=== PATIENT | male | born 1980 | race African-American/Black ===

== ENCOUNTER 2022-12-14 18:27 | Emergency (ER) | payer MEDICAID ==
--- NOTE | 2022-12-14 19:16 | ED Physician Documentation ---
History of Present Illness - Stated complaint Stated Complaint: DRAIN BAG - Chief complaint Chief Complaint: General - History obtained from History obtained from: Patient, Family - Additonal information Additional information: 42-year-old gentleman with history of polysubstance use, methamphetamine, tobacco and cannabis and schizophrenia who had a prolonged hospital course this year. 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 Hospital course complicated by duodenal perforation status post ex lap with duodenal repair and omental patch developing later Multrys multiple intra-abdominal abscesses with IR placed drains. He was on multiple antibiotic courses. Went back to [facility] on September 24 for right subphrenic fluid collection with drain placement. Back to rehab on October 02. Had a left drain placement by IR 511 and then developed signs of sepsis. That fluid did not grow anything. Recently moved back to the area and here wanting follow-up and also wondering if the drain can be replaced. He has some cognitive difficulties so most of the history is from the mother. Currently has no complaints. Denies fevers, pain, shortness of breath. PD PAST MEDICAL HISTORY - Present Medications Home Medications: Ambulatory Orders Medication Instructions Recorded Confirmed Fluconazole [Diflucan] 200 mg PO DAILY #56 tablet 12/14/22 levoFLOXacin [Levofloxacin] 750 mg PO DAILY #28 tablet 12/14/22 metroNIDAZOLE [Flagyl] 500 mg PO TID 7 Days #84 tablet 12/14/22 - Allergies Allergies/Adverse Reactions: Allergies Allergy/AdvReac Type Severity Reaction Status Date / Time No Known Drug Allergies Allergy Verified 12/14/22 18:37 PD ED PE NORMAL - Vitals Vital signs reviewed: Yes - General General: No acute distress, Other (Blunted affect) - Neck Neck: Supple, no meningeal sign, No bony TTP - Cardiac Cardiac: RRR, No murmur - Respiratory Respiratory: No respiratory distress, Clear bilaterally - Abdomen Abdomen: Normal bowel sounds, Non tender - Back Back: Other (There is a drain in the left flank with thick greenish material in the tubing bag but of small amount.) - Derm Derm: Normal color, Warm and dry - Extremities Extremities: No edema, No calf tenderness / cord - Neuro Neuro: Alert and oriented X 3, Normal speech Results - Vitals Vitals: Vital Signs - 24 hr 12/14/22 18:36 Temperature 36.9 C Heart Rate 99 Respiratory 20 Rate Blood Pressure 130/88 H O2 Saturation 100 Oxygen O2 Source Room air - Labs Labs: Laboratory Tests 12/14/22 12/14/22 20:07 20:07 WBC 6.4 RBC 4.42 L Hgb 11.5 L Hct 36.4 L MCV 82.4 MCH 26.0 L MCHC 31.6 L RDW 15.9 H Plt Count 395 MPV 8.7 Neut # (Auto) 4.0 Lymph # (Auto) 1.8 [place] # (Auto) 0.5 Eos # (Auto) 0.1 Baso # (Auto) 0.0 Absolute Nucleated RBC 0.00 Nucleated RBC % 0.0 Sodium 135 Potassium 3.7 Chloride 103 Carbon Dioxide 26 Anion Gap 6.0 BUN 10 Creatinine 0.7 Estimated GFR (MDRD) 151 Glucose 99 Calcium 9.3 Total Bilirubin 0.4 AST 20 ALT 13 Alkaline Phosphatase 80 Total Protein 8.2 Albumin 3.1 L Globulin 5.1 H Albumin/Globulin Ratio 0.6 L PD Medical Decision Making - ED course ED course: 42-year-old gentleman has had a very complicated medical history this year who has a drain in place and still has some drainage and wondering if he can get it out. Much of the history is from his mother due to his schizophrenia. I spent quite some time on records review that the mom has with him. We did a CT of the chest abdomen pelvis which shows persistent fluid collection so the drain cannot be removed at this time and also pulmonary nodules that were discussed with the patient and mom. Given the persistent fluid collection we will restart antibiotics. Previously per the notes he was on Levaquin, Flagyl, and fluconazole. He appears well with relatively normal blood work save anemia. His QTc had been followed previously on this regimen without issue and he tolerated them well. Departure - Departure Disposition: 01 Home, Self Care Clinical Impression: Intra-abdominal abscess Condition: Good Record reviewed to determine appropriate education?: Yes Follow-Up: Suman Arroyo MD [Provider Admit Priv/Credential] - Prescriptions: Fluconazole [Diflucan] 200 mg PO DAILY #56 tablet metroNIDAZOLE [Flagyl] 500 mg PO TID 7 Days #84 tablet levoFLOXacin [Levofloxacin] 750 mg PO DAILY #28 tablet Comments: As discussed, imaging today demonstrates that the fluid collection is still there measuring today 5.2 x 2.4 x 2.7 cm. Given this we will need to leave the drain and I am restarting the antibiotics you are on previously. You should follow-up with our physician on-call for outpatient follow-up. His number is on this form, call first thing tomorrow for an appointment. Important to follow- up closely as your case is very complicated. You do have some small pulmonary nodules and would benefit from repeat CT imaging of the chest in 12 months to document stability.
[2022-12-14] MEDS ORDERED: iohexoL-300 100 ML VIAL ONE (19:19)
[2022-12-14 20:13] LABS: BASOPHILS % (AUTO) 0.6 %; EOSINOPHILS # (AUTO) 0.1 10^3/uL (0.0-0.7); EOSINOPHILS % (AUTO) 1.6 %; HCT - HEMATOCRIT 36.4 % (42.0-52.0); HGB - HEMOGLOBIN 11.5 g/dL (14.0-18.0); LYMPHOCYTES # (AUTO) 1.8 10^3/uL (1.5-3.5); LYMPHOCYTES % (AUTO) 27.6 %; MEAN CORPUSCULAR HGB CONC 31.6 g/dL (32.0-36.0); MEAN CORPUSCULAR VOLUME 82.4 fL (80.0-94.0); MEAN PLATELET VOLUME 8.7 fL (7.4-11.4); MONOCYTES # (AUTO) 0.5 10^3/uL (0.0-1.0); MONOCYTES % (AUTO) 8.3 %; NEUTROPHILS % (AUTO) 61.6 %; PLT - PLATELET COUNT 395 10^3/uL (130-450); RED BLOOD COUNT 4.42 10^6/uL (4.70-6.10); RED CELL DISTRIBUTION WIDTH 15.9 % (12.0-15.0); WHITE BLOOD COUNT 6.4 x10^3/uL (4.8-10.8)
[2022-12-14 20:25] LABS: ALBUMIN 3.1 g/dL (3.2-5.5); ALBUMIN/GLOBULIN RATIO 0.6 (1.0-2.2); BILIRUBIN,TOTAL 0.4 mg/dL (0.2-1.0); CALCIUM 9.3 mg/dL (8.5-10.3); CREATININE 0.7 mg/dL (0.6-1.2); POTASSIUM 3.7 mmol/L (3.5-5.0); TOTAL PROTEIN 8.2 g/dL (6.7-8.2)
--- NOTE | 2022-12-14 22:26 | CT Report ---
PROCEDURE: CHEST W INDICATIONS: History pneumonia and mult intra-abdominal abscess CONTRAST: Omni 300 100ml TECHNIQUE: After the administration of intravenous contrast, 1 mm axial images were acquired from the pulmonary apices through the posterior costophrenic angles. Axial 5 mm soft tissue kernel reconstructions were performed as well as 8 mm axial MIP and coronal and sagittal 5 mm reformations. For radiation dose reduction, the following was used: automated exposure control, adjustment of mA and/or kV according to patient size. COMPARISON: Concurrent CT abdomen pelvis. FINDINGS: Image quality: Excellent. Lower Neck: No lymphadenopathy by size criteria. Thyroid: Visualized thyroid demonstrates no discrete nodules. Axillae: No lymphadenopathy by size criteria. Chest Wall: Unremarkable. Bones: Visualized osseous structures demonstrate no suspicious lesions. Lungs and Airways: No acute consolidation. In the left lower lobe, there is a 0.4 cm 40 nodule media lly on series 4 image 185. In the right lower lobe, there is also a 0.4 cm nodule on series 4 image 1 91. The trachea and central airways are patent. Pleura: No pneumothorax or pleural effusions. Heart: Heart size is normal. No pericardial effusion. Thoracic Vessels: The aorta and pulmonary arteries are normal in size. Mediastinum and Ivis: No lymphadenopathy by size criteria. Esophagus: No wall thickening. No hiatal hernia. Upper Abdomen: Visualized upper abdomen demonstrates a drainage catheter within a loculated collectio n lateral to the spleen. IMPRESSION: 1. No acute consolidation or other evidence of pneumonia. 2. Small nonspecific 0.4 cm pulmonary nodules in the lower lobes as described. Reviewed by: Remy Herrera MD on 12/14/2022 10:25 PM PDT Approved by: Remy Herrera MD on 12/14/2022 10:25 PM PDT Station ID: [id number]
--- NOTE | 2022-12-14 22:34 | CT Report ---
PROCEDURE: ABDOMEN/PELVIS W INDICATIONS: History pneumonia and mult intra-abdominal abscess CONTRAST: Omni 300 100ml TECHNIQUE: After the administration of intravenous contrast, 5 mm thick sections acquired from the diaphragms to the symphysis. 5 mm thick coronal and sagittal reformats were acquired. For radiation dose reducti on, the following was used: automated exposure control, adjustment of mA and/or kV according to romana ent size. COMPARISON: Concurrent CT of the chest. Outside studies not available for comparison at time of dict ation. FINDINGS: Image quality: There is mild motion artifact. Lung bases:There is mild dependent atelectasis. Heart: Heart is normal in size. ABDOMEN: Liver: No mass lesion. Gallbladder: Within normal limits without calcified gallstones. Biliary ducts: No biliary ductal dilatation. Pancreas: Unremarkable. Spleen: Normal in size. Adrenal Glands: No adrenal nodules. Kidneys and Ureters: No hydronephrosis. Stomach and Bowel: Stomach, small bowel loops, and colon are normal in caliber and wall thickness. Peritoneum: There is a pigtail drainage catheter within a loculated subdiaphragmatic fluid collectio n superolateral to the spleen measuring approximately 5.2 x 2.4 x 2.7cm . No intraperitoneal free flu id. No free air. Ventral Wall: No hernia. Abdominal Nodes: No retroperitoneal or mesenteric adenopathy by size criteria. Vessels: Aorta and inferior vena cava are normal in size. PELVIS: Pelvic Organs: Unremarkable. Bladder: Unremarkable. Pelvic Nodes: No enlarged lymph nodes. Miscellaneous: No inguinal hernias. Bones: Visualized osseous structures demonstrate no suspicious lesions. IMPRESSION: 1. Loculated subdiaphragmatic fluid collection superolateral to the spleen likely representing an abs cess with an associated pigtail drainage catheter demonstrated. Reviewed by: Remy Herrera MD on 12/14/2022 10:32 PM PDT Approved by: Remy Herrera MD on 12/14/2022 10:32 PM PDT Station ID: [id number]
[2022-12-14] MEDS ORDERED: FLUCONAZOLE 100 MG TABLET PO STA (22:40)
[2022-12-14] MEDS ORDERED: metroNIDAZOLE 250 MG TABLET PO STA (22:40)
[2022-12-14] MEDS ORDERED: levoFLOXacin 250 MG TABLET PO STA (22:40)
[2022-12-14] MEDS ORDERED: risperiDONE 1 MG TABLET PO STA (22:41)
[2022-12-14] MEDS ORDERED: oxyCODONE 5 MG TABLET PO STA (22:41)
[2022-12-14] MEDS ORDERED: diphenhydrAMINE INJ 50 MG/ML VIAL IVP STA (23:16)
[2022-12-14 23:22] VITALS: BP 134/92
[2022-12-14] MEDS ORDERED: iohexoL-300 100 ML VIAL IVP ONE (23:49)
== END 2022-12-14 23:35 | disposition home or self-care (01) ==
LOC: ED 18:27
DX: K65.1 Peritoneal abscess (principal)
CPT/HCPCS: 36415; 71260; 74177; 80053; 85025; 96374; 99284; A9270; J1200; Q9967

== ENCOUNTER 2023-01-24 09:28 | Outpatient (CLI) | payer MEDICAID | END 2023-01-24 09:29 | disposition critical access hospital (66) | LOC: EMS 09:28 | DX: R10.9 Unspecified abdominal pain (principal); R10.819 Abdominal tenderness, unspecified site; R19.30 Abdominal rigidity, unspecified site; R11.2 Nausea with vomiting, unspecified | CPT/HCPCS: A0425; A0429; A0999 ==

== ENCOUNTER 2023-01-24 09:51 | Inpatient (IN) | payer MEDICAID ==
--- NOTE | 2023-01-24 10:05 | ED Physician Documentation ---
PD HPI ABD PAIN - Stated complaint Stated Complaint: AB PX - History obtained from History obtained from: Patient, Family (mother) - History of Present Illness Timing - onset: Today Timing - duration: Days (The patient has been having some degree of abdominal pain for several weeks. Increased this morning associated with some vomiting. He had been seen a week ago and hospitalized at [facility] for a few days. He had had a drain in transit percutaneous that he pulled out a few days ago.) Timing - details: Gradual onset, Still present, Waxing and waning Quality: Cramping, Aching, Pain Location: Epigastric, LUQ Radiation: Left flank Improved by: No: Vomiting Worsened by: Eating Associated symptoms: Nausea, Vomiting. No: Fever, Hematemesis, Diarrhea, Constipation Similar symptoms before: Diagnosis (he had multiple abscesses and skin infections earlier in the through September timeframe and was hsopitalized [place] for about 6 weeks. See ED note from early December for summary details. Had drain left flank for an abscess perisplenic, but pt pulled it out last week.) Recently seen: Admitted (he was seen in our ER early December with similar and given IV fluids/meds and discharged. Mother says the patient was in [facility] a week ago for 3 days and left AMA. No scripts/meds given to patient according to mother. He was set up with appt GI at [place] this coming Thu (jan 28).) Review of Systems Constitutional: denies: Fever Nose: denies: Congestion Throat: denies: Sore throat Cardiac: denies: Chest pain / pressure Respiratory: denies: Cough GI: reports: Abdominal Pain (for months), Nausea, Vomiting. denies: Diarrhea, Bloody / black stool Musculoskeletal: reports: Back pain Neurologic: denies: Altered mental status, Headache Psychiatric: reports: Anxiety (mother states he has had agitation and flight of ideas c/w his schizoaffective behavior. She states he "needs his ripserdal".) PD PAST MEDICAL HISTORY - Past Medical History Cardiovascular: None Respiratory: None Endocrine/Autoimmune: None GI: Other (intrabd abscesses recently.) Psych: Schizophrenia - Present Medications Home Medications: Ambulatory Orders Medication Instructions Recorded Confirmed Fluconazole [Diflucan] 200 mg PO DAILY #56 tablet 12/14/22 levoFLOXacin [Levofloxacin] 750 mg PO DAILY #28 tablet 12/14/22 metroNIDAZOLE [Flagyl] 500 mg PO TID 7 Days #84 tablet 12/14/22 Ondansetron Odt [Zofran] 4 mg TL Q6H PRN #20 tablet 01/24/23 levoFLOXacin [Levofloxacin] 500 mg PO DAILY #10 tablet 01/24/23 metroNIDAZOLE [Flagyl] 500 mg PO BID 7 Days #20 tablet 01/24/23 oxyCODONE [Roxicodone] 5 mg PO Q6H PRN #20 tablet 01/24/23 risperiDONE [RisperDAL] 2 mg PO ONCE #40 tablet 01/24/23 - Allergies Allergies/Adverse Reactions: Allergies Allergy/AdvReac Type Severity Reaction Status Date / Time No Known Drug Allergies Allergy Verified 12/14/22 18:37 PD ED PE NORMAL - Vitals Vital signs reviewed: Yes - General General: Well developed/nourished, Other (he is agitated and extra responsive to touch. ) - Neck Neck: Supple, no meningeal sign, No adenopathy - Cardiac Cardiac: RRR (bradycardic), No murmur - Respiratory Respiratory: No respiratory distress, Clear bilaterally - Abdomen Abdomen: Non distended, No organomegaly. No: Normal bowel sounds (diminished) - Derm Derm: Normal color, Warm and dry - Extremities Extremities: Other (diffuse graft scars on both arms and hands. ) - Neuro Neuro: No motor deficit, No sensory deficit. No: Alert and oriented X 3 (alert and oriented to person, place. easily distracted and agitated. Responds to calming voice and redirection/repeating ideas. ) Results - Vitals Vitals: Vital Signs - 24 hr 01/24/23 01/24/23 01/24/23 10:10 10:48 11:58 Temperature 36.2 C L 36.1 C L Heart Rate 48 L 48 L 50 L Respiratory 18 18 22 Rate Blood Pressure 141/61 H 127/79 138/81 H O2 Saturation 97 100 100 01/24/23 01/24/23 01/24/23 14:00 14:45 15:49 Temperature 36.2 C L 36.2 C L Heart Rate 51 L 53 L 43 L Respiratory 13 14 13 Rate Blood Pressure 124/90 H 132/86 H 151/84 H O2 Saturation 100 97 98 01/24/23 01/24/23 01/24/23 18:11 20:07 21:25 Temperature Heart Rate 86 50 L 77 Respiratory 22 17 18 Rate Blood Pressure 159/98 H 136/89 H 149/101 H O2 Saturation 94 98 95 Oxygen O2 Source Room air - EKG (time done) 10:26 EKG releavant findings:: EKG personally interpreted by author of this note. Relevant findings are: Rate: Rate (enter#) (39) Rhythm: Sinus bradycardia [place]: Normal Intervals: Normal PA QRS: Normal Ischemia: Normal ST segments, ST elevation c/w repol. No: ST elevation c/w ischemia - Labs Labs: Laboratory Tests 01/24/23 01/24/23 01/24/23 11:24 11:48 11:48 WBC 6.9 RBC 4.83 Hgb 13.0 L Hct 41.7 L MCV 86.3 MCH 26.9 L MCHC 31.2 L RDW 14.6 Plt Count 468 H MPV 8.5 Neut # (Auto) 5.3 Lymph # (Auto) 1.4 L [place] # (Auto) 0.2 Eos # (Auto) 0.0 Baso # (Auto) 0.0 Absolute Nucleated RBC 0.00 Nucleated RBC % 0.0 Sodium 136 Potassium 3.9 Chloride 103 Carbon Dioxide 28 Anion Gap 5.0 L BUN 10 Creatinine 0.7 Estimated GFR (MDRD) 151 Glucose 96 Lactic Acid Calcium 9.8 Magnesium 2.0 Total Bilirubin 0.4 AST 26 ALT 19 Alkaline Phosphatase 95 Total Protein 8.8 Albumin 3.8 Globulin 5.0 H Albumin/Globulin Ratio 0.8 L Lipase 20 Urine Color YELLOW Urine Clarity CLEAR Urine pH 7.0 Ur Specific [place] 1.020 Urine Protein NEGATIVE Urine Glucose (UA) NEGATIVE Urine Ketones NEGATIVE Urine Occult Blood NEGATIVE Urine Nitrite NEGATIVE Urine Bilirubin NEGATIVE Urine Urobilinogen 0.2 (NORMAL) Ur Leukocyte Esterase NEGATIVE Ur Microscopic Review NOT INDICATED Urine Culture Comments NOT INDICATED 01/24/23 11:48 WBC RBC Hgb Hct MCV MCH MCHC RDW Plt Count MPV Neut # (Auto) Lymph # (Auto) [place] # (Auto) Eos # (Auto) Baso # (Auto) Absolute Nucleated RBC Nucleated RBC % Sodium Potassium Chloride Carbon Dioxide Anion Gap BUN Creatinine Estimated GFR (MDRD) Glucose Lactic Acid 1.7 Calcium Magnesium Total Bilirubin AST ALT Alkaline Phosphatase Total Protein Albumin Globulin Albumin/Globulin Ratio Lipase Urine Color Urine Clarity Urine pH Ur Specific [place] Urine Protein Urine Glucose (UA) Urine Ketones Urine Occult Blood Urine Nitrite Urine Bilirubin Urine Urobilinogen Ur Leukocyte Esterase Ur Microscopic Review Urine Culture Comments - Rads (name of study) abd/pelvic CT Relevant Findings:: Prelim report reviewed (proximal small bowel with wall edema c/w colitis. subdiaphramatic/perisplenic fluid collection smaller than previous.), EMP independent interpretation of test PD Medical Decision Making - ED course Complexity details: considered differential (The patient is having anxiety and restlessness which is mother states is from his schizoaffective and not being on the respite all. She states he does well with that. He also has abdominal pain and vomiting that has been a recurring. He had had prior intra-abdominal abscesses treated long-term.), d/w patient ED course: The patient had blood tests as well as a CT scan. His previous noted fluid collection perisplenic is smaller than it had been. His white count is normal as is his lactic acid and electrolytes. No fever. It does not look like obvious recurring infection at this point. He is not currently on antibiotics for the last week or so. He had been hospitalized in [facility] but his mother states he was not discharged with any medications as the left against advice. He does have an appointment coming up in [place] with a ux ui designer this coming Thursday. He did have some repeated emesis here in ER which has delayed his discharge. He is much calmer with PO risperdal and IV antiemetics. Had some pain meds as well. Given prepacks since pharmacies will be closing soon. Can give Rxs for back on his antibiotics as requested by his mother, until sees GI. Not unreasonable. Also meds for pain, nausea. and his risperidone. Sent to pharmacy. He was able to take some sips of water. Had some small emesis 1/2 hour later. He had gotten 2 lites IV fluid in ED, so is hydrated enough for now. Seems reasonable for discharge. Was getting repeat dose antiemetic at time of shift change. Departure - Departure Disposition: 01 Home, Self Care Clinical Impression: Intra-abdominal abscess, Abdominal pain, Nausea and vomiting, Schizophrenia Condition: Stable Record reviewed to determine appropriate education?: Yes Prescriptions: metroNIDAZOLE [Flagyl] 500 mg PO BID 7 Days #20 tablet levoFLOXacin [Levofloxacin] 500 mg PO DAILY #10 tablet risperiDONE [RisperDAL] 2 mg PO ONCE #40 tablet oxyCODONE [Roxicodone] 5 mg PO Q6H PRN #20 tablet PRN Reason: Pain Ondansetron Odt [Zofran] 4 mg TL Q6H PRN #20 tablet PRN Reason: Nausea / Vomiting Comments: Small frequent fluids at home. Simple diet with starches/carbohydrates such as pastas rice cereals. Electrolyte fluids such as Gatorade. For now would make sense to continue the antibiotics you have been on until follow-up. I wrote a prescription for the levofloxacin and metronidazole. For symptoms, use the ondansetron for nausea as needed. Add Tylenol every 4-6 hours if needed for pain. I also prescribed oxycodone to use every 6 hours if needed for worse pain. Stay hydrated. Continue with your risperidone medication to help with your mood and anxiety. Follow-up this coming Thursday at [place] [facility] as planned. Return to the ER sooner if needed. I sent prescriptions for your medicines to the [facility] in [place]. I am prescribing a short course of narcotic pain medication for you. These are potentially dangerous and addictive medications that should be used carefully. These medications may constipate you. Take an [id number] stool softener such as docusate twice daily with plenty of water while taking these medications. If you go 24 hours without a bowel movement, take [id number] MiraLAX, per package instructions. Do not drink or drive while taking these medications. If you received narcotic or sedating medications while in the emergency department do not drive for 24 hours. Store this medication in a safe, secure place and out of reach of children. It is a violation of federal law to give or sell this medication to another person or to use in a manner other than prescribed. The ED will not refill narcotic prescriptions, including prescriptions lost or stolen. You can dispose of unwanted medications at the [facility]'s office or at several pharmacies such as [facility]. Forms: PCP List
[2023-01-24] MEDS ORDERED: SODIUM CHLORIDE 0.9% 1,000 ML IV STA ×4 (10:09→22:49)
[2023-01-24] MEDS ORDERED: DROPERIDOL 5 MG/2 ML VIAL IVP STA ×2 (10:09→17:20)
[2023-01-24] MEDS ORDERED: KETOROLAC 15 MG/ML VIAL IVP STA (10:10)
[2023-01-24] MEDS ORDERED: HYDROmorphone 0.5 MG/0.5 ML SYRINGE IVP STA (10:38)
[2023-01-24] MEDS ORDERED: risperiDONE 1 MG TABLET PO STA (10:40)
[2023-01-24 11:52] LABS: BASOPHILS % (AUTO) 0.3 %; EOSINOPHILS % (AUTO) 0.3 %; HCT - HEMATOCRIT 41.7 % (42.0-52.0); LYMPHOCYTES # (AUTO) 1.4 10^3/uL (1.5-3.5); LYMPHOCYTES % (AUTO) 19.8 %; MEAN CORPUSCULAR HEMOGLOBIN 26.9 pg (27.0-31.0); MEAN CORPUSCULAR HGB CONC 31.2 g/dL (32.0-36.0); MEAN CORPUSCULAR VOLUME 86.3 fL (80.0-94.0); MEAN PLATELET VOLUME 8.5 fL (7.4-11.4); MONOCYTES # (AUTO) 0.2 10^3/uL (0.0-1.0); MONOCYTES % (AUTO) 3.3 %; NEUTROPHILS # (AUTO) 5.3 10^3/uL (1.5-6.6); PLT - PLATELET COUNT 468 10^3/uL (130-450); RED BLOOD COUNT 4.83 10^6/uL (4.70-6.10); RED CELL DISTRIBUTION WIDTH 14.6 % (12.0-15.0); WHITE BLOOD COUNT 6.9 x10^3/uL (4.8-10.8)
[2023-01-24 12:02] LABS: BILIRUBIN,URINE NEGATIVE (NEGATIVE); GLUCOSE, URINE (UA) NEGATIVE (NEGATIVE); KETONES,URINE (UA) NEGATIVE (NEGATIVE); LEUKOCYTE ESTERASE, URINE NEGATIVE (NEGATIVE); NITRITE,URINE NEGATIVE (NEGATIVE); OCCULT BLOOD,URINE NEGATIVE (NEGATIVE); PROTEIN,URINE NEGATIVE (NEGATIVE); UROBILINOGEN,URINE 0.2 (NORMAL) E.U./dL (NORMAL)
[2023-01-24 12:03] LABS: CLARITY,URINE CLEAR (CLEAR)
[2023-01-24 12:05] LABS: ALBUMIN 3.8 g/dL (3.2-5.5); ALBUMIN/GLOBULIN RATIO 0.8 (1.0-2.2); BILIRUBIN,TOTAL 0.4 mg/dL (0.2-1.0); CALCIUM 9.8 mg/dL (8.5-10.3); CREATININE 0.7 mg/dL (0.6-1.3); POTASSIUM 3.9 mmol/L (3.5-4.5); TOTAL PROTEIN 8.8 g/dL (6.4-8.9)
[2023-01-24] MEDS ORDERED: ONDANSETRON 4 MG/2 ML VIAL IVP STA ×3 (12:05→22:49)
--- NOTE | 2023-01-24 14:39 | CT Report ---
PROCEDURE: CT abdomen and pelvis with contrast INDICATIONS: prior perisplenic abscess; interval eval TECHNIQUE: Helical axial CT of the abdomen and pelvis was obtained after intravenous contrast adminis tration and reformatted in multiple planes. For radiation dose reduction, the following was used: au tomated exposure control, adjustment of mA and/or kV according to patient size. COMPARISON: 11/14/2022 FINDINGS: Lower thorax: The lung bases are clear. Heart size normal. No hiatal hernia. Liver: Normal in size and attenuation. No contour deformity present. Biliary system: No calcified cholelithiasis or pericholecystic inflammation. No evidence of bile du ct dilatation. Pancreas: Unremarkable without mass or inflammation evident. Spleen: [Perisplenic subdiaphragmatic abscess measures 4.5 x 2.5 cm, previously 5.0 x 2.4 cm. Percut aneous drain has been removed Adrenals: Normal morphology and density. Reproductive system: Unremarkable as visualized. Urinary system: Normal renal size and attenuation. No renal calculi, hydronephrosis, or solid mass p resent. Urinary bladder unremarkable. Gastrointestinal system: Small bowel left lower quadrant shows fluid distention to 3 cm in diameter a nd wall thickening with relative decreased enhancement. No pneumatosis Appendix: No findings to suggest acute appendicitis. Peritoneal spaces: No mesenteric or retroperitoneal adenopathy. No free air. No free fluid. Vasculature: Incidental reflux of venous contrast into the IVC extends into the pelvis Musculoskeletal: Normal bone mineralization. No acute fractures. Abdominal wall intact without roro dence of ventral or inguinal hernias. IMPRESSION: Perisplenic subdiaphragmatic abscess is persistent but slightly smaller than the prior exam. Percutan eous drain has been removed Proximal small bowel dilation with wall thickening and adjacent edema may reflect ileus or enteritis. Developing obstruction consideration. Decreased enhancement and may related to early phase of enhanc ement. No pneumatosis. Consider short-term interval follow-up and correlation with lab values to exc lude the unlikely possibility ischemic bowel. Reviewed by: Antoine Dillard MD on 01/24/2023 1:38 PM RABIA Approved by: Antoine Dillard MD on 01/24/2023 1:38 PM RABIA Station ID: [id number]
[2023-01-24] MEDS ORDERED: iohexoL-300 100 ML VIAL IVP ONE (14:40)
[2023-01-24] MEDS ORDERED: levoFLOXacin 500 MG/100 ML 500 MG/100 ML BAG IV STA (16:16)
[2023-01-24] MEDS ORDERED: ONDANSETRON ODT 4 MG Prepack 2 TL PRN (17:31)
[2023-01-24] MEDS ORDERED: oxyCODONE/ACET 5/325 Prepack 4 PO STA (17:31)
[2023-01-24] MEDS ORDERED: PROMETHAZINE INJ 25 MG in SODIUM CHLORIDE 0.9% 50 ML IV STA (19:18)
[2023-01-24] MEDS ORDERED: PROMETHAZINE 25 MG/1 ML VIAL ONE (19:37)
[2023-01-25] MEDS ORDERED: SODIUM CHLORIDE FLUSH 0.9% 10 ML SYRINGE IVP PRN (02:30)
--- NOTE | 2023-01-25 02:48 | HISTORY & PHYSICAL EXAMINATION ---
Chief Complaint - Chief Complaint Chief Complaint: abdominal pain History of Present Illness - History of Present Illness HPI Comment/Other: 42 y old male with PMH schizophrenia presented with c/o abdominal pain and nausea and vomiting. Pt is quite sleepy at this time and not able to provide any history so most of history is from ER physician and ER record. Apparently patient has history of multiple abdominal/ skin abscess for which he was admitted in hospitals in [place] and drain was put in December. Most recently he was admitted in [facility] last week and stayed there for 3 days but he left AMA. Apprently patient also pulled his drain 3 days ago. He has f/u appointment with GI on 01/28. Patient came in with abdominal pain and nausea and vomiting. On presentaion, afebrile Labs showed normal WBC CT abdomen/pelvis was done which showed small perisplenic subdiagphamatic abscess which has decreased in size As per ER physician (Dr Randolph), he discussed the case with transportation specialist surgeon, Dr Coronado who suggested IV abx and no surgical intervention at this time In ER, patient was given IV Abx Patient is admitted due to abdominal pain, nausea, vomiting, possible ileus, acute gastroenteritis, perisplenic abscess History - Past Medical History Cardiovascular: reports: None Respiratory: reports: None Endocrine/Autoimmune: reports: None GI: reports: Other (intrabd abscesses recently.) Psych: reports: Schizophrenia Meds/Allgy - Home Medications Home Medications: Ambulatory Orders Medication Instructions Recorded Confirmed Fluconazole [Diflucan] 200 mg PO DAILY #56 tablet 12/14/22 levoFLOXacin [Levofloxacin] 750 mg PO DAILY #28 tablet 12/14/22 metroNIDAZOLE [Flagyl] 500 mg PO TID 7 Days #84 tablet 12/14/22 Ondansetron Odt [Zofran] 4 mg TL Q6H PRN #20 tablet 01/24/23 levoFLOXacin [Levofloxacin] 500 mg PO DAILY #10 tablet 01/24/23 metroNIDAZOLE [Flagyl] 500 mg PO BID 7 Days #20 tablet 01/24/23 oxyCODONE [Roxicodone] 5 mg PO Q6H PRN #20 tablet 01/24/23 risperiDONE [RisperDAL] 2 mg PO ONCE #40 tablet 01/24/23 - Allergies Allergies/Adverse Reactions: Allergies Allergy/AdvReac Type Severity Reaction Status Date / Time No Known Drug Allergies Allergy Verified 12/14/22 18:37 Review of Systems - Gastrointestinal Gastrointestinal: reports: Abdominal pain, Vomiting - Other Findings Other Findings: Unable to obtain as patient is sleeping Exam - Vital Signs Vital Signs: Vital Signs x48h Pulse Resp BP Pulse Ox 01/25/23 02:32 56 L 15 100 01/25/23 01:00 47 L 15 99 01/24/23 23:57 46 L 15 100 01/24/23 23:11 50 L 18 155/97 H 95 01/24/23 21:25 77 18 149/101 H 95 01/24/23 20:07 50 L 17 136/89 H 98 - Physical Exam General Appearance: positive: No acute distress Eyes Bilateral: positive: Normal inspection ENT: positive: ENT inspection nml Neck: positive: Nml inspection Respiratory: positive: No respiratory distress, Breath sounds nml Cardiovascular: positive: Regular rate & rhythm Abdomen: positive: Non-tender Skin: positive: No rash Extremities: positive: No pedal edema Neurologic/Psychiatric: positive: Motor nml Conclusion/Plan - Lab Results Fish Bones: 01/24/23 11:48 01/24/23 11:48 - Other Other Results/Comments: A: Abdominal pain Intractable nausea and vomiting Ileus Acute gastroenteritis Perisplenic abscess Plan; Admit in tele NPO NS @ 100 cc/h Zofran iv prn Monitor I/O, electrolytes Follow cx start iv zosyn, flagyl and vanco Repeat cbc, bmp in am As per ER physician (Dr Randolph), he has consulted with surgeon transportation specialist, (Dr Orozco) who rec IV Abx and no surgical intervention DVT prophy: SCD Full code Patient is admitted as inpatient as more than 2 midnight stay is expected
[2023-01-25] MEDS ORDERED: metroNIDAZOLE 500 MG/100 ML 500 MG/100 ML BAG IV SCH (03:00)
[2023-01-25] MEDS ORDERED: VANCOMYCIN INJ 1.5 GM in SODIUM CHLORIDE 0.9% 500 ML IV SCH (03:00)
[2023-01-25] MEDS ORDERED: PIPERACILLIN/TAZOBACTAM 3.375 GM in SODIUM CHLORIDE 0.9% MINIBAG 100 ML IV SCH (03:00)
[2023-01-25 04:33] LABS: BASOPHILS % (AUTO) 0.4 %; EOSINOPHILS % (AUTO) 0.4 %; HGB - HEMOGLOBIN 12.4 g/dL (14.0-18.0); LYMPHOCYTES # (AUTO) 1.4 10^3/uL (1.5-3.5); LYMPHOCYTES % (AUTO) 17.7 %; MEAN CORPUSCULAR HEMOGLOBIN 27.4 pg (27.0-31.0); MEAN CORPUSCULAR HGB CONC 31.8 g/dL (32.0-36.0); MEAN CORPUSCULAR VOLUME 86.1 fL (80.0-94.0); MEAN PLATELET VOLUME 8.7 fL (7.4-11.4); MONOCYTES # (AUTO) 0.4 10^3/uL (0.0-1.0); NEUTROPHILS # (AUTO) 6.1 10^3/uL (1.5-6.6); NEUTROPHILS % (AUTO) 76.2 %; PLT - PLATELET COUNT 460 10^3/uL (130-450); RED BLOOD COUNT 4.53 10^6/uL (4.70-6.10); RED CELL DISTRIBUTION WIDTH 14.7 % (12.0-15.0)
--- NOTE | 2023-01-25 04:44 | ED Physician Documentation ---
ED Addendum - Addendum Addendum: 01/25/23 04:43 I received turnover of care/signout on this patient from Dr. Lizama; please see his note for complete history and physical. Dr. León's ED note from last month also provides quite helpful summary of patient's past medical and surgical history, which involves prolonged and complicated inpatient stay earlier this year in a hospital in [place]. Patient's mother is at bedside and she has inpatient notes regarding said hospital stay. He has h/o intraabdominal absces ses, NSTI requiring skin grafts, duodenal perforation. Patient's blood tests tonight are reassuring, with a normal white blood cell count (6.9), normal lactate (1.7), and unremarkable liver function test. He has been afebrile during ED stay. Reportedly, the patient was inpatient at [facility] earlier this month, left AMA after a few days. Patient's mother indicates that because he left AMA, he was not provided with any prescription medications. During his stay at [facility], the patient himself pulled out a percutaneous drain that had been in place to drain an intra- abdominal abscess. At the time of turnover of care, the patient is already been in this emergency department for 9 hours. Largely contributing to this extended stay in the ER is somnolent subsequent to receiving Risperdal (for schizophrenia; patient's mother says he has been without this medication for at least a week) and likely side effect of some of the other medications he has received such as pain medication (dilaudid) and antinausea medication (droperidol). Shortly before turnover of care, Dr. Lizama had patient ready for discharge with take-home medications provided and prescriptions for multiple medications including antibiotics, Risperdal, pain medication, antinauseants electronically submitted to pharmacy. Unfortunately, before the patient could be discharged, he again had vomiting despite having received 2 L IV fluids, and multiple rounds of several different antinauseants including zofran and droperidol. He is nearly finished with IV phenergan at time of signout. Patient subsequently had more vomiting. I ordered another liter of NS IV as well as another dose of 4mg IV Zofran. Patient again had emesis subsequent to these interventions. On my exam, patient is asleep. He is drowsy, but suddenly awakens as I go to visually inspect his abdomen by removing his blanket and lifting his shirt. He does not answer any of my questions, repeatedly tries to pull his chart back down and pull his blanket back up to cover, turns over in the bed at times. I was able to eventually perform a brief abdominal exam. He is nondistended, has decreased bowel sounds, there is a midline large, old/healed scar. I do not elicit any tenderness to palpation on exam. Note that patient has only received 0.5 mg Dilaudid IV and 15 mg ketorolac IV, both of which were administered ne ann 9 hours prior to turnover of care of this patient to me. CT A/P interpreted by radiology as "perisplenic subdiaphragmatic abscess is persistent but slightly smaller than the prior exam. Percutaneous drain has been removed. Proximal small bowel dilation with wall thickening and adjacent edema may reflect ileuis or enteritis. Developing obstruction consideration". The radiologist's dictation indicates a CT from 11/14/2022 is used for comparison. Please see radiologist's reading for full report. Given patient's recurrent vomiting despite IV fluids and multiple rounds of a few different antinausea medications, patient would be inappropriate for discharge home at this time. The finding of abscess on CT is not new; previous records including [facility] ED visit in the last month, notes from his inpatient stay in the hospital in [place], and that the comparative study per radiology is from 2 months ago, all indicate that patient has had an abscess in this same location already documented, and tonight CT, as noted above, is smaller in size than previous studies. I believe the finding of abscess is an incidental finding and not causing/contributing to his vomiting. I discussed this case with Dr. Orozco (on-call surgery for [facility]). Included in this discussion as patient's past medical and surgical history, as well as the results of blood tests and the CT findings. He says he can be consulted by hospitalist if they are comfortable admitting for the nausea/vomiting. Dr. Orozco says that the finding on CT would probably be adequately treated with IV antibiotics and is a nonsurgical/nonoperative finding at this time. I discussed this case with the telehealth physician, including my discussion with Dr. Orozco. Telehealth will admit this patient to the hospitalist service.
[2023-01-25 04:53] LABS: CALCIUM 9.3 mg/dL (8.5-10.3); CREATININE 0.7 mg/dL (0.6-1.3); POTASSIUM 4.1 mmol/L (3.5-4.5)
--- NOTE | 2023-01-25 05:22 | ED Physician Documentation ---
ED Addendum - Addendum Addendum: 01/25/23 05:19 Subsequent to the patient getting admitted to [facility], I received discharge summary from ; this was faxed after we requested these records a few hours earlier. The discharge summary indicates that the patient was admitted January 12, 2023 at which time he had a pigtail catheter draining the subdiaphragmatic fluid-filled collection. Of note, the discharge summary also includes "IR consulted from ED, spoke with Dr. Lopes who suggest that if the drain is not draining we can discontinue and pull the pigtail out", as well as "Patient's pigtail catheter was draining minimally, he pulled it out on his own after complainin no one is removing it. He did not allow nurse to change the bag either", and "Pt reportedly had some drugs in his backpack that was secured by the staff and was agitated about not having access to it". Patient left [facility] AMA 01/14/23.
[2023-01-25] MEDS: SODIUM CHLORIDE 0.9% 1,000 ML IV SCH ×2 (05:23→07:11)
--- NOTE | 2023-01-25 06:56 | ANESTHESIA PROCEDURE NOTE ---
Anesth Central Line Template - Central Line Central Line Preparation: Consent Obtained (mother), Time out completed, Ultr asound used, Sterile prep and drape Central line location: Right Basilic Central line type: PICC Single Lumen Central line catheter tip site resides: Superior vena cava (SVC) Central line aftercare: Secured, Placement confirmed, No pneumothorax, No complications, Bundle checklist complete, Pt tolerated well, Other Other Info/Details: cath cut to 42cm, threaded to hub, no p wave change with tip tracker, pcxr to confirm
--- NOTE | 2023-01-25 07:19 | XRAY Report ---
PROCEDURE: Chest for Line Placement INDICATIONS: new PICC@R basilic v. TECHNIQUE: One view of the chest was acquired. COMPARISON: None. FINDINGS: Surgical changes and devices: Right PICC with tip terminating in the SVC. Lungs and pleura: No pleural effusions or pneumothorax. Lungs are clear. Mediastinum: Mediastinal contours appear normal. Heart size is normal. Bones and chest wall: No suspicious bony lesions. Overlying soft tissues appear unremarkable. IMPRESSION: No acute cardiopulmonary process. Right PICC with tip terminating in the SVC. Reviewed by: Vidal Young MD on 01/25/2023 7:18 AM PDT Approved by: Vidal Young MD on 01/25/2023 7:18 AM PDT Station ID: [id number]
[2023-01-25] MEDS: PIPERACILLIN/TAZOBACTAM 3.375 GM in SODIUM CHLORIDE 0.9% MINIBAG 100 ML IV SCH ×3 (08:11→20:01)
[2023-01-25] MEDS: SODIUM CHLORIDE FLUSH 0.9% 10 ML SYRINGE IVP SCH ×2 (08:13→15:29)
[2023-01-25] MEDS ORDERED: VANCOMYCIN INJ 1.75 GM in SODIUM CHLORIDE 0.9% 500 ML IV ONE (09:00)
--- NOTE | 2023-01-25 10:43 | PHARMACY PROGRESS NOTE ---
- Best Possible Medication History Admit Date and Time: 01/25/23 0229 Processed by: Pharmacy Medication History completed: Yes Patient Interview: Pt unable to participate Secondary Source(s): Physician records (PT CANNOT COMMUNICATE CURRENT MEDICAT IONS. LIST IS BASED ON MEDICATIONS ORDERED DURING RECENT HOSPITALIZATIONS.) As the person ultimately responsible for medication therapy, providers are able to order a medication from an existing home medication list in [facility] via the "Reconcile Routine" prior to Confirmation of that medication by support specialist. Such practice is discouraged except when the physician, in their clinical judgment, deems that a medical need exists for a medication without regard to previous use.
--- NOTE | 2023-01-25 11:08 | CONSULTATION NOTE ---
Referring Provider Consult Date: 01/25/23 Chief Complaint - Chief Complaint Chief Complaint: admitted for n/v History of Present Illness - History Obtained From Records Reviewed: yes History obtained from: record review and ED MD Exam Limitations: pt currently not responding to voice. shrugs some to voice - History of Present Illness HPI Comment/Other: pt with mental health problems and possible cognitive problems as well. polypsubstance abuse and surgery in [place] earlier this year for necrotizing infections both arms and laparotomy for perforated duodenum. drains placed for parisplenic abscess. last saw ashlie KAPOOR for this. drain has been removed. ct scan much improved. afebrile and normal wbc History - Past Medical History Cardiovascular: reports: None Respiratory: reports: None Endocrine/Autoimmune: reports: None GI: reports: Other Psych: reports: Schizophrenia Other Past Medical History: EXTENSIVE abd surgical history, please see chart - Past Surgical History General: reports: Bowel surgery Meds/Allgy - Home Medications Home Medications: Ambulatory Orders Medication Instructions Recorded Confirmed Fluconazole [Diflucan] 200 mg PO DAILY #56 tablet 12/14/22 01/25/23 levoFLOXacin [Levofloxacin] 750 mg PO DAILY #28 tablet 12/14/22 01/25/23 metroNIDAZOLE [Flagyl] 500 mg PO TID 7 Days #84 tablet 12/14/22 01/25/23 Acetaminophen [Tylenol] 650 mg PO Q6H PRN 01/25/23 01/25/23 Folic Acid 1 mg PO DAILY 01/25/23 01/25/23 Gabapentin [Neurontin] 100 mg PO BID 01/25/23 01/25/23 Melatonin/Pyridoxine [Melatonin 5 5 mg PO QPM 01/25/23 01/25/23 mg Tablet] Multivitamin [Theragran] 1 each PO DAILY 01/25/23 01/25/23 Omeprazole Magnesium 20 mg PO DAILY 01/25/23 01/25/23 Thiamine [Vitamin B-1] 100 mg PO DAILY 01/25/23 01/25/23 risperiDONE [Risperdal] 2 mg PO BID 01/25/23 01/25/23 - Allergies Allergies/Adverse Reactions: Allergies Allergy/AdvReac Type Severity Reaction Status Date / Time No Known Drug Allergies Allergy Verified 12/14/22 18:37 Review of Systems - Other Findings Other Findings: as above otherwise unremarkable Exam - Vital Signs Vital Signs: Vital Signs x48h Temp Pulse Resp BP BP Pulse Ox 01/25/23 09:00 36.1 C L 47 L 16 135/86 H 99 01/25/23 05:15 3638 C H 50 L 16 147/87 H 99 01/25/23 04:37 36.7 C 46 L 16 166/103 H 100 - Physical Exam General Appearance: positive: No acute distress, Other (shrugs shoulders slightly to voice. does not answer to voice. arms across abdomen and does not respond when I ask if I can examine his abdomen) ENT: positive: No signs of dehydration Neck: positive: No JVD, Trachea midline Respiratory: positive: No respiratory distress Abdomen: positive: No distention Neurologic/Psychiatric: positive: Other (hears my voice however not responding other than moving shoulders.) Conclusion and Plan - Lab Results Laboratory Results 01/25/23 04:20: Sodium 134 L, Potassium 4.1, Chloride 102, Carbon Dioxide 26, Anion Gap 6.0, BUN 8, Creatinine 0.7, Estimated GFR (MDRD) 151, Glucose 78, Calcium 9.3 01/25/23 04:20: WBC 8.0, RBC 4.53 L, Hgb 12.4 L, Hct 39.0 L, MCV 86.1, MCH 27.4, MCHC 31.8 L, RDW 14.7, Plt Count 460 H, MPV 8.7, Neut # (Auto) 6.1, Lymph # (Auto) 1.4 L, [place] # (Auto) 0.4, Eos # (Auto) 0.0, Baso # (Auto) 0.0, Absolute Nucleated RBC 0.00, Nucleated RBC % 0.0 01/24/23 11:48: Lactic Acid 1.7 01/24/23 11:48: Sodium 136, Potassium 3.9, Chloride 103, Carbon Dioxide 28, Anion Gap 5.0 L, BUN 10, Creatinine 0.7, Estimated GFR (MDRD) 151, Glucose 96, C alcium 9.8, Magnesium 2.0, Total Bilirubin 0.4, AST 26, ALT 19, Alkaline Phosphatase 95, Total Protein 8.8, Albumin 3.8, Globulin 5.0 H, Albumin/Globulin Ratio 0.8 L, Lipase 20 01/24/23 11:48: WBC 6.9, RBC 4.83, Hgb 13.0 L, Hct 41.7 L, MCV 86.3, MCH 26.9 L, MCHC 31.2 L, RDW 14.6, Plt Count 468 H, MPV 8.5, Neut # (Auto) 5.3, Lymph # (Auto) 1.4 L, [place] # (Auto) 0.2, Eos # (Auto) 0.0, Baso # (Auto) 0.0, Absolute Nucleated RBC 0.00, Nucleated RBC % 0.0 01/24/23 11:24: Urine Color YELLOW, Urine Clarity CLEAR, Urine pH 7.0, Ur Specific [place] 1.020, Urine Protein NEGATIVE, Urine Glucose (UA) NEGATIVE, Urine Ketones NEGATIVE, Urine Occult Blood NEGATIVE, Urine Nitrite NEGATIVE, Urine Bilirubin NEGATIVE, Urine Urobilinogen 0.2 (NORMAL), Ur Leukocyte Esterase NEGATIVE, Ur Microscopic Review NOT INDICATED, Urine Culture Comments NOT INDICATED - Diagnostic Imaging Results Diagnostic Imaging Results: positive: Read independently (small fluid collection near spleen. no air and not enhancing. not obviously infected. much improved for prior ct scan) - Diagnosis Diagnosis: nausea and vomiting. history laparotomy for perforated duodenum and abcesses - Plan Plan: agree with care and plan. fluid collection is small and not clearly infected. ok to have clears as tolerated ok for d/c off antibiotics when tolerating clears, benign abdominal exam, afebrile, normal wbc. currently he is not giving me consent for exam. cu rrently he appears comfortable and well (not physically ill), is afebrile, and wbc normal. recommend follow up [facility] after d/c for further assessment fluid collection
[2023-01-25] MEDS: metroNIDAZOLE 500 MG/100 ML 500 MG/100 ML BAG IV SCH ×2 (11:55→18:33)
--- NOTE | 2023-01-25 12:30 | PROVIDER PROGRESS NOTE ---
Assessment/Plan - Problem List (1) Nausea and vomiting Assessment/Plan: Etiology unclear but, we are most worried that the perisplenic abscess is what caused his symptoms Plan: Continue with IV fluids for hydration Continue as needed antiemetics We will start clear liquids, as recommended by general surgery today (2) Intra-abdominal abscess Assessment/Plan: He had multiple abscesses and skin infections earlier in the year, August through September and was hsopitalized [place] for about 6 weeks. Then he was seen in our ER early December with similar Dx and given IV fluids/meds and discharged. Mother says the patient was in [facility] a week ago for 3 days and left AMA. No scripts/meds given to patient according to mother. He had a drain in left flank for an abscess (perisplenic), but pt pulled it out last week. He was set up with appt GI at [place] this coming Thu (jan 28).) Plan: We will continue the empiric antibiotic started by telemedicine doctor, Elvin, vancomycin, Flagyl Follow WBC Appreciate general surgery consult with recommendations that if he tolerates clear liquids, has normal WBC, and has no abdominal pain he can be discharged. Would like him to keep the appt with GI at [place] this coming ThuJan 28. (3) Schizophrenia Assessment/Plan: Plan: His medication list has been reconciled. I have restarted his antipsychotic meds. - Current Meds Current Meds: Current Medications Generic Name Dose Route Start Last Admin Trade Name Freq PRN Reason Stop Dose Admin Sodium Chloride 1,000 mls @ 100 mls/hr 01/25/23 03:00 01/25/23 07:11 Normal Saline 0.9% IV 100 mls/hr .Q10H GENIE Administration Piperacillin Sod/Tazobactam 100 mls @ 200 mls/hr 01/25/23 08:00 01/25/23 08:41 Sod 3.375 gm/ Sodium Chloride IV Infused Q6H GENIE Infusion Metronidazole 500 mg in 100 mls @ 100 mls/hr 01/25/23 11:00 01/25/23 11:55 Flagyl 500 Mg/100 Ml IV 100 mls/hr Q8H GENIE Administration Ondansetron HCl 4 mg 01/24/23 17:31 01/24/23 17:56 Ondansetron Odt 4 Mg Prepack 2 TL 4 mg Q6HR PRN Administration Nausea / Vomiting Sodium Chloride 10 ml 01/25/23 09:00 01/25/23 08:13 Sodium Chloride Flush 0.9% 10 Ml Syringe IVP 10 ml 0100,0900,1700 GENIE Administration - Lab Result Fish Bone Diagrams: 01/25/23 04:20 01/25/23 04:20 - Additional Planning My Orders: My Active Orders 01/25/23 Lunch DIET [Clear Liquid Diet] [DIET] Subjective - Subjective Patient Reports: Resting Comfortably Nursing Reports: Other (He was combative in the ER when approached to have his abdomen examined) Objective Vital Signs: Vital Signs - 24 hr 01/24/23 01/24/23 01/24/23 14:00 14:45 15:49 Temperature 36.2 C L 36.2 C L Heart Rate 51 L 53 L 43 L Heart Rate [ Monitoring electrodes] Respiratory 13 14 13 Rate Blood Pressure 124/90 H 132/86 H 151/84 H Blood Pressure [Left Brachial artery] Blood Pressure [Right Brachial artery] O2 Saturation 100 97 98 01/24/23 01/24/23 01/24/23 18:11 20:07 21:25 Temperature Heart Rate 86 50 L 77 Heart Rate [ Monitoring electrodes] Respiratory 22 17 18 Rate Blood Pressure 159/98 H 136/89 H 149/101 H Blood Pressure [Left Brachial artery] Blood Pressure [Right Brachial artery] O2 Saturation 94 98 95 01/24/23 01/24/23 01/25/23 23:11 23:57 01:00 Temperature Heart Rate 50 L 46 L 47 L Heart Rate [ Monitoring electrodes] Respiratory 18 15 15 Rate Blood Pressure 155/97 H Blood Pressure [Left Brachial artery] Blood Pressure [Right Brachial artery] O2 Saturation 95 100 99 01/25/23 01/25/23 01/25/23 02:32 04:37 05:15 Temperature 36.7 C 3638 C H Heart Rate 56 L Heart Rate [ 46 L 50 L Monitoring electrodes] Respiratory 15 16 16 Rate Blood Pressure Blood Pressure [Left Brachial artery] Blood Pressure 166/103 H 147/87 H [Right Brachial artery] O2 Saturation 100 100 99 01/25/23 01/25/23 09:00 12:13 Temperature 36.1 C L 36.8 C Heart Rate Heart Rate [ 47 L 52 L Monitoring electrodes] Respiratory 16 16 Rate Blood Pressure Blood Pressure 135/86 H 141/88 H [Left Brachial artery] Blood Pressure [Right Brachial artery] O2 Saturation 99 100 Oxygen O2 Source Room air I&O (Last 24 Hrs): Intake and Output Totals x24h 01/23/23 01/24/23 01/25/23 23:59 23:59 23:59 Intake Total 2151 1100 Output Total 650 Balance 2151 450 General: Other (Lethargic, sleeping and appears comfortable) HEENT: Mucous membr. moist/pink Neck: Supple Respiratory: No respiratory distress Abdomen: Other (Not examined) Extremities: No edema - Results Results: Laboratory Results WBC 8.0 x10^3/uL (4.8-10.8) 01/25/23 04:20 RBC 4.53 10^6/uL (4.70-6.10) L 01/25/23 04:20 Hgb 12.4 g/dL (14.0-18.0) L 01/25/23 04:20 Hct 39.0 % (42.0-52.0) L 01/25/23 04:20 MCV 86.1 fL (80.0-94.0) 01/25/23 04:20 MCH 27.4 pg (27.0-31.0) 01/25/23 04:20 MCHC 31.8 g/dL (32.0-36.0) L 01/25/23 04:20 RDW 14.7 % (12.0-15.0) 01/25/23 04:20 Plt Count 460 10^3/uL (130-450) H 01/25/23 04:20 MPV 8.7 fL (7.4-11.4) 01/25/23 04:20 Neut # (Auto) 6.1 10^3/uL (1.5-6.6) 01/25/23 04:20 Lymph # (Auto) 1.4 10^3/uL (1.5-3.5) L 01/25/23 04:20 [place] # (Auto) 0.4 10^3/uL (0.0-1.0) 01/25/23 04:20 Eos # (Auto) 0.0 10^3/uL (0.0-0.7) 01/25/23 04:20 Baso # (Auto) 0.0 10^3/uL (0.0-0.1) 01/25/23 04:20 Absolute Nucleated RBC 0.00 x10^3/uL 01/25/23 04:20 Nucleated RBC % 0.0 /100WBC 01/25/23 04:20 Sodium 134 mmol/L (135-145) L 01/25/23 04:20 Potassium 4.1 mmol/L (3.5-4.5) 01/25/23 04:20 Chloride 102 mmol/L (101-111) 01/25/23 04:20 Carbon Dioxide 26 mmol/L (21-32) 01/25/23 04:20 Anion Gap 6.0 (6-13) 01/25/23 04:20 BUN 8 mg/dL (6-20) 01/25/23 04:20 Creatinine 0.7 mg/dL (0.6-1.3) 01/25/23 04:20 Estimated GFR (MDRD) 151 (>89) 01/25/23 04:20 Glucose 78 mg/dL (74-104) 01/25/23 04:20 Lactic Acid 1.7 mmol/L (0.5-2.2) 01/24/23 11:48 Calcium 9.3 mg/dL (8.5-10.3) 01/25/23 04:20 Magnesium 2.0 mg/dL (1.7-2.3) 01/24/23 11:48 Total Bilirubin 0.4 mg/dL (0.2-1.0) 01/24/23 11:48 AST 26 IU/L (10-42) 01/24/23 11:48 ALT 19 IU/L (10-60) 01/24/23 11:48 Alkaline Phosphatase 95 IU/L (42-121) 01/24/23 11:48 Total Protein 8.8 g/dL (6.4-8.9) 01/24/23 11:48 Albumin 3.8 g/dL (3.2-5.5) 01/24/23 11:48 Globulin 5.0 g/dL (2.1-4.2) H 01/24/23 11:48 Albumin/Globulin Ratio 0.8 (1.0-2.2) L 01/24/23 11:48 Lipase 20 U/L (11-82) 01/24/23 11:48 Urine Color YELLOW 01/24/23 11:24 Urine Clarity CLEAR (CLEAR) 01/24/23 11:24 Urine pH 7.0 PH (5.0-7.5) 01/24/23 11:24 Ur Specific [place] 1.020 (1.002-1.030) 01/24/23 11:24 Urine Protein NEGATIVE mg/dL (NEGATIVE) 01/24/23 11:24 Urine Glucose (UA) NEGATIVE mg/dL (NEGATIVE) 01/24/23 11:24 Urine Ketones NEGATIVE mg/dL (NEGATIVE) 01/24/23 11:24 Urine Occult Blood NEGATIVE (NEGATIVE) 01/24/23 11:24 Urine Nitrite NEGATIVE (NEGATIVE) 01/24/23 11:24 Urine Bilirubin NEGATIVE (NEGATIVE) 01/24/23 11:24 Urine Urobilinogen 0.2 (NORMAL) E.U./dL (NORMAL) 01/24/23 11:24 Ur Leukocyte Esterase NEGATIVE (NEGATIVE) 01/24/23 11:24 Ur Microscopic Review NOT INDICATED 01/24/23 11:24 Urine Culture Comments NOT INDICATED 01/24/23 11:24
[2023-01-25] MEDS: risperiDONE 1 MG TABLET PO SCH ×2 (13:07→20:01)
[2023-01-25] MEDS ORDERED: VANCOMYCIN INJ 1.25 GM in SODIUM CHLORIDE 0.9% 250 ML IV SCH (15:00)
[2023-01-25] MEDS: ONDANSETRON 4 MG/2 ML VIAL IVP PRN ×2 (15:28→21:46)
--- NOTE | 2023-01-25 16:46 | PHARMACY PROGRESS NOTE ---
- Therapy Status Vancomycin regimen day #: 1 Therapy status: Awaiting steady state Basis for treatment: Empirical Treatment indication: INTRA ABDOMINAL ABSCESS Trough goal: 15-20 Concurrent antibiotics: ZOSYN, FLAGYL - TAINA Risk Risk level for Acute Kidney Injury: Moderate Acute Kidney Injury risk factors: Piperacillin/Tozobactam, IV contrast within 72 hrs, Goal trough >15 - Monitoring and Recommendation Clinical response to treatment: I&O Previous 24 hours 01/23/23 01/24/23 01/25/23 23:59 23:59 23:59 Intake Total 2151 2950 Output Total 1650 Balance 2151 1300 Lab Results 01/25/23 01/24/23 04:20 11:48 BUN 8 10 Creatinine 0.7 0.7 Estimated GFR (MDRD) 151 151 Areas for additional monitoring: IV to PO when appropriate, Therapy de- escalation based on culture results
[2023-01-25] MEDS: VANCOMYCIN INJ 1 GM, VANCOMYCIN INJ 250 MG in SODIUM CHLORIDE 0.9% 250 ML IV SCH (16:48)
[2023-01-25] MEDS: ACETAMINOPHEN 325 MG TABLET PO PRN (18:05)
--- NOTE | 2023-01-25 19:42 | PROVIDER PROGRESS NOTE ---
Subjective - Subjective Pt reports feeling: Improved (no significant emesis today or pain) Objective - Vital Signs/Intake & Output Vital Signs: Vital Signs x48h Temp Pulse Pulse Resp BP BP Pulse Ox 01/25/23 18:33 37.1 C 01/25/23 15:28 36.8 C 53 L 14 139/87 H 100 01/25/23 12:13 36.8 C 52 L 16 141/88 H 100 Intake & Output: Intake & Output 01/22/23 01/23/23 01/24/23 01/25/23 23:59 23:59 23:59 23:59 Intake Total 2151 3200 Output Total 2100 Balance 2151 1100 - Objective General Appearance: positive: Lethargic Respiratory: positive: No respiratory distress Abdomen: positive: Non-tender, No distention, Other (well healed midline incision. completely soft, non distended, non tender benign abdominal exam) - Lab Results Fish Bones: 01/25/23 04:20 01/25/23 04:20 Other Labs: Lab Results x24hrs 01/25/23 01/25/23 Range/Units 04:20 04:20 WBC 8.0 (4.8-10.8) x10^3/uL RBC 4.53 L (4.70-6.10) 10^6/uL Hgb 12.4 L (14.0-18.0) g/dL Hct 39.0 L (42.0-52.0) % MCV 86.1 (80.0-94.0) fL MCH 27.4 (27.0-31.0) pg MCHC 31.8 L (32.0-36.0) g/dL RDW 14.7 (12.0-15.0) % Plt Count 460 H (130-450) 10^3/uL MPV 8.7 (7.4-11.4) fL Neut # (Auto) 6.1 (1.5-6.6) 10^3/uL Lymph # (Auto) 1.4 L (1.5-3.5) 10^3/uL [place] # (Auto) 0.4 (0.0-1.0) 10^3/uL Eos # (Auto) 0.0 (0.0-0.7) 10^3/uL Baso # (Auto) 0.0 (0.0-0.1) 10^3/uL Absolute Nucleated RBC 0.00 x10^3/uL Nucleated RBC % 0.0 /100WBC Sodium 134 L (135-145) mmol/L Potassium 4.1 (3.5-4.5) mmol/L Chloride 102 (101-111) mmol/L Carbon Dioxide 26 (21-32) mmol/L Anion Gap 6.0 (6-13) BUN 8 (6-20) mg/dL Creatinine 0.7 (0.6-1.3) mg/dL Estimated GFR (MDRD) 151 (>89) Glucose 78 (74-104) mg/dL Calcium 9.3 (8.5-10.3) mg/dL Assessment/Plan - Problem List (1) Nausea and vomiting Impression: mother present. he was well until yesterday when developed sharp abdominal pain and n/v. this evening he has a normal abdominal exam. non tender non distended history and imaging most consistent with partial small bowel obstruction. certainly he does not have ischemic bowel. he has a small fluid collection adjacent to the spleen which is unlikely an abscess. I do not believe an additional ct scan is needed anytime soon. recommend clears and advance as tolerated. if not advancing consider gastrografin study. ok to stop abxs if remains afebrile, normal wbc, and when tolerating diet
--- NOTE | 2023-01-25 20:29 | PROVIDER PROGRESS NOTE ---
Developmental Psychologist Note - Developmental Psychologist Note Developmental Psychologist Note: Called by Rn stating "Pt here for abdominal pain due to abdominal pain. Pt only has tylenol in the MAR. Pt has been rating his pain as 7/10. Can we get something stronger ordered for pain?" Patient discussed at length with DARBY Welch concerns for partial SBO, creatinine is normal will give toradol 30 mg ivp Q 6 hrs prn for 2 days please continue to monitor clinically and would prefer to avoid narcotics.
[2023-01-25] MEDS: KETOROLAC 30 MG/ML VIAL IVP PRN (20:48)
[2023-01-26] MEDS: VANCOMYCIN INJ 1 GM, VANCOMYCIN INJ 250 MG in SODIUM CHLORIDE 0.9% 250 ML IV SCH ×3 (00:06→17:09)
[2023-01-26] MEDS: SODIUM CHLORIDE 0.9% 1,000 ML IV SCH ×3 (00:09→23:34)
[2023-01-26] MEDS: SODIUM CHLORIDE FLUSH 0.9% 10 ML SYRINGE IVP SCH ×4 (00:13→23:34)
[2023-01-26] MEDS: PIPERACILLIN/TAZOBACTAM 3.375 GM in SODIUM CHLORIDE 0.9% MINIBAG 100 ML IV SCH ×3 (02:10→14:19)
[2023-01-26] MEDS: KETOROLAC 30 MG/ML VIAL IVP PRN ×2 (02:52→08:55)
[2023-01-26] MEDS: ONDANSETRON 4 MG/2 ML VIAL IVP PRN ×2 (03:05→08:52)
[2023-01-26] MEDS: PROCHLORPERAZINE 10 MG/2 ML VIAL IVP PRN ×2 (03:17→16:23)
[2023-01-26] MEDS: metroNIDAZOLE 500 MG/100 ML 500 MG/100 ML BAG IV SCH ×3 (03:24→19:04)
[2023-01-26] MEDS ORDERED: MORPHINE 10 MG/ML VIAL IVP PRN (03:30)
[2023-01-26] MEDS: ACETAMINOPHEN 325 MG TABLET PO PRN (07:28)
[2023-01-26] MEDS ORDERED: HYDROmorphone 1 MG/ML CARPUJECT IVP PRN (08:34)
[2023-01-26] MEDS ORDERED: THIAMINE 100 MG TABLET PO SCH (09:00)
[2023-01-26] MEDS ORDERED: FLUCONAZOLE 100 MG TABLET PO SCH (09:00)
[2023-01-26] MEDS ORDERED: THIAMINE INJ 100 MG in SODIUM CHLORIDE 0.9% 50 ML IV SCH (09:00)
[2023-01-26] MEDS: risperiDONE 1 MG TABLET PO SCH ×2 (10:21→21:35)
[2023-01-26] MEDS ORDERED: polyethylene glycoL 3350 17 GM PACKET PO SCH (11:00)
--- NOTE | 2023-01-26 13:13 | PROVIDER PROGRESS NOTE ---
Subjective - General Admit Date: 01/25/23 Procedure Performed: Was in ED 01/24 - admitted 01/25. No procedure. - Other Other Information/Narrative: Unable to get any interaction with the patient despite voice and touch. Objective - Patient Data Reviewed Vital Signs: Yes Vital Signs: Vital Signs x48h Temp Pulse Resp BP Pulse Ox 01/26/23 12:10 36.2 C L 57 L 16 152/92 H 100 Weight: Weight 01/24/23 01/25/23 01/26/23 23:59 23:59 23:59 Weight (kg) 69.082 kg 69.1 kg Intake & Output: Intake and Output Totals x24h 01/24/23 01/25/23 01/26/23 23:59 23:59 23:59 Intake Total 2151 4500 801 Output Total 2600 1055 Balance 2151 1900 -254 - Lab Results Lab Results: 01/25/23 04:20 01/25/23 04:20 - Current Medications Current Medications: Current Medications Generic Name Dose Route Start Last Admin Trade Name Freq PRN Reason Stop Dose Admin Acetaminophen 650 mg 01/25/23 12:32 01/26/23 07:28 Acetaminophen 325 Mg Tablet PO 650 mg Q4HR PRN Administration Pain or Fever > 38C (100.4F) Fluconazole 200 mg 01/26/23 09:00 01/26/23 10:21 Fluconazole 100 Mg Tablet PO 200 mg DAILY GENIE Administration Hydromorphone HCl 1 mg 01/26/23 08:34 01/26/23 11:25 Hydromorphone 1 Mg/Ml Carpuject IVP 1 mg Q2HR PRN Administration Severe Pain (Level 7-10) Sodium Chloride 1,000 mls @ 100 mls/hr 01/25/23 03:00 01/26/23 00:09 Normal Saline 0.9% IV 100 mls/hr .Q10H GENIE Administration Piperacillin Sod/Tazobactam 100 mls @ 200 mls/hr 01/25/23 08:00 01/26/23 07:27 Sod 3.375 gm/ Sodium Chloride IV 200 mls/hr Q6H GENIE Administration Vancomycin HCl 1 gm/ 250 mls @ 167 mls/hr 01/25/23 17:00 01/26/23 10:19 Vancomycin HCl 250 mg/ Sodium IV 167 mls/hr Chloride Q8H GENIE Administration Metronidazole 500 mg in 100 mls @ 100 mls/hr 01/25/23 11:00 01/26/23 04:26 Flagyl 500 Mg/100 Ml IV Infused Q8H GENIE Infusion Thiamine HCl 100 mg/ Sodium 51 mls @ 100 mls/hr 01/26/23 09:00 01/26/23 10:55 Chloride IV Infused DAILY GENIE Infusion Ketorolac Tromethamine 30 mg 01/25/23 20:26 01/26/23 08:55 Ketorolac 30 Mg/Ml Vial IVP 01/27/23 20:25 30 mg Q6HR PRN Administration Severe Pain (Level 7-10) Ondansetron HCl 4 mg 01/24/23 17:31 01/24/23 17:56 Ondansetron Odt 4 Mg Prepack 2 TL 4 mg Q6HR PRN Administration Nausea / Vomiting Ondansetron HCl 4 mg 01/25/23 02:30 01/26/23 08:52 Ondansetron 4 Mg/2 Ml Vial IVP 4 mg Q6HR PRN Administration Nausea / Vomiting Melatonin 5 Mg 1 each 01/25/23 21:00 01/25/23 19:54 Tablet PO Not Given QPM GENIE Polyethylene Glycol 17 gm 01/26/23 11:00 01/26/23 10:33 Polyethylene Glycol 3350 17 Gm Packet PO 17 gm DAILY GENIE Administration Prochlorperazine Edisylate 5 mg 01/25/23 23:23 01/26/23 03:17 Prochlorperazine 10 Mg/2 Ml Vial IVP 5 mg Q6HR PRN Administration Nausea / Vomiting Risperidone 2 mg 01/25/23 13:00 01/26/23 10:21 Risperidone 1 Mg Tablet PO 2 mg BID GENIE Administration Sodium Chloride 10 ml 01/25/23 09:00 01/26/23 10:20 Sodium Chloride Flush 0.9% 10 Ml Syringe IVP 10 ml 0100,0900,1700 GENIE Administration - Physical Exam General Appearance: positive: No acute distress, Other (Catatonic.) Eyes Bilateral: positive: Other (Did not examine.) Respiratory: positive: No respiratory distress, Breath sounds nml Cardiovascular: positive: Regular rate & rhythm, No murmur, Other (Occasional PAC.) Abdomen: positive: Non-tender, No organomegaly, Nml bowel sounds, No distention. 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 Certainly nothing surgically correctable at this point. Avoid opiates as much as possible. 3) Schizophrenia/catatonia/ non-compliance Making evaluation and treatment more challenging. Patient has pulled out his drain and would not leave an NG in place. Will continue to follow. CPT 01563
[2023-01-26] MEDS ORDERED: DIATR MEGLU/DIATRIZOATE SODIUM 120 ML BOTTLE PO ONE (15:14)
[2023-01-26] MEDS ORDERED: DIATR MEGLU/DIATRIZOATE SODIUM 120 ML BOTTLE ONE (15:40)
[2023-01-26] MEDS: CEFEPIME 1 GM in SODIUM CHLORIDE 0.9% MINIBAG 100 ML IV SCH ×2 (15:40→21:34)
--- NOTE | 2023-01-26 17:19 | PROVIDER PROGRESS NOTE ---
Assessment/Plan - Problem List (1) Nausea and vomiting Assessment/Plan: Etiology unclear but, we are most worried that the perisplenic abscess is what caused his symptoms. The general surgeon feels he may have an SBO Plan: Continue with IV fluids for hydration Continue as needed antiemetics, Zofran and Compazine now both ordered prn Cont on clear liquids, as recommended by general surgery (2) Intra-abdominal abscess Assessment/Plan: He had multiple abscesses and skin infections earlier in the year, August through September and was hospitalized [facility] for about 6 weeks. Then he was seen in our ER early December with similar Dx and given IV fluids/meds and discharged. Mother says the patient was in [facility] a week ago for 3 days and left AMA. No scripts/meds given to patient according to mother. He had a drain in left flank for an abscess (perisplenic), but pt pulled it out last week. He was set up with appt GI at [facility] this coming Thu (jan 28) Plan: We will change the empiric antibiotic started by telemedicine doctor, stopping Zosyn, changing to Cefepime, continuing iv Vancomycin, and iv Flagyl (this was discussed with pharmacist Arnold barksdale and with pharmacist Edgar today) Follow WBC General surgery consult with recommendations were if he tolerates clear liquids, has normal WBC, and has no abdominal pain he can be discharged. Would like him to keep the appt with GI at [facility] this coming ThuJan 28. The general surgeon feels he may have an SBO. Today as per general design studio consultant Dr. Neri, we will try a Gastrografin challenge with SBFT x-rays (3) Schizophrenia Assessment/Plan: The patient is mostly asleep or is catatonic. He likes to be in bed naked and wants the room dark door closed Plan: His medication list has been reconciled. I have restarted his antipsychotic meds. - Current Meds Current Meds: Current Medications Generic Name Dose Route Start Last Admin Trade Name Freq PRN Reason Stop Dose Admin Acetaminophen 650 mg 01/25/23 12:32 01/26/23 07:28 Acetaminophen 325 Mg Tablet PO 650 mg Q4HR PRN Administration Pain or Fever > 38C (100.4F) Fluconazole 200 mg 01/26/23 09:00 08/21/23 10:21 Fluconazole 100 Mg Tablet PO 200 mg DAILY GENIE Administration Hydromorphone HCl 1 mg 01/26/23 08:34 01/26/23 11:25 Hydromorphone 1 Mg/Ml Carpuject IVP 1 mg Q2HR PRN Administration Severe Pain (Level 7-10) Sodium Chloride 1,000 mls @ 100 mls/hr 01/25/23 03:00 01/26/23 00:09 Normal Saline 0.9% IV 100 mls/hr .Q10H GENIE Administration Vancomycin HCl 1 gm/ 250 mls @ 167 mls/hr 01/25/23 17:00 01/26/23 17:09 Vancomycin HCl 250 mg/ Sodium IV 167 mls/hr Chloride Q8H GENIE Administration Metronidazole 500 mg in 100 mls @ 100 mls/hr 01/25/23 11:00 01/26/23 14:20 Flagyl 500 Mg/100 Ml IV Infused Q8H GENIE Infusion Thiamine HCl 100 mg/ Sodium 51 mls @ 100 mls/hr 01/26/23 09:00 01/26/23 10:55 Chloride IV Infused DAILY GENIE Infusion Cefepime HCl 1 gm/ Sodium 100 mls @ 200 mls/hr 01/26/23 16:00 01/26/23 16:10 Chloride IV Infused TID GENIE Infusion Ketorolac Tromethamine 30 mg 01/25/23 20:26 01/26/23 08:55 Ketorolac 30 Mg/Ml Vial IVP 01/27/23 20:25 30 mg Q6HR PRN Administration Severe Pain (Level 7-10) Ondansetron HCl 4 mg 01/24/23 17:31 01/24/23 17:56 Ondansetron Odt 4 Mg Prepack 2 TL 4 mg Q6HR PRN Administration Nausea / Vomiting Ondansetron HCl 4 mg 01/25/23 02:30 01/26/23 08:52 Ondansetron 4 Mg/2 Ml Vial IVP 4 mg Q6HR PRN Administration Nausea / Vomiting Melatonin 5 Mg 1 each 01/25/23 21:00 01/25/23 19:54 Tablet PO Not Given QPM GENIE Polyethylene Glycol 17 gm 01/26/23 11:00 01/26/23 10:33 Polyethylene Glycol 3350 17 Gm Packet PO 17 gm DAILY GENIE Administration Prochlorperazine Edisylate 5 mg 01/25/23 23:23 01/26/23 16:23 Prochlorperazine 10 Mg/2 Ml Vial IVP 5 mg Q6HR PRN Administration Nausea / Vomiting Risperidone 2 mg 01/25/23 13:00 01/26/23 10:21 Risperidone 1 Mg Tablet PO 2 mg BID GENIE Administration Sodium Chloride 10 ml 01/25/23 09:00 01/26/23 17:01 Sodium Chloride Flush 0.9% 10 Ml Syringe IVP Not Given 0100,0900,1700 GENIE - Lab Result Fish Bone Diagrams: 01/25/23 04:20 01/25/23 04:20 - Additional Planning My Orders: My Active Orders 01/25/23 21:00 Patient Own Med [Patient Own Medication] 1 each PO QPM 01/26/23 08:34 HYDROmorphone 1MG CARP [Dilaudid 1Mg Carp] 1 mg IVP Q2HR PRN 01/26/23 09:00 Fluconazole [Diflucan] 200 mg PO DAILY Thiamine Inj [Vitamin B-1 Inj] 100 mg Sodium Chloride 0.9% [Normal Saline 0.9%] 50 ml IV DAILY 01/26/23 11:00 polyethylene glycoL 3350 [Miralax] 17 gm PO DAILY 01/26/23 16:00 Cefepime [Maxipime] 1 gm Sodium Chloride 0.9% Minibag [Normal Saline 0.9% Minibag] 100 ml IV TID Subjective - Subjective Patient Reports: Nausea (He is sitting up on side of bed, dangling his feet, having emesis of bilious liquid.) Objective Vital Signs: Vital Signs - 24 hr 01/25/23 01/25/23 01/26/23 18:33 20:49 03:36 Temperature 37.1 C 36.4 C L 36.3 C L Heart Rate [ 53 L 77 Brachial] Heart Rate [ Monitoring electrodes] Respiratory 16 12 Rate Blood Pressure [Left Brachial artery] Blood Pressure 155/75 H 160/92 H [Right Brachial artery] O2 Saturation 100 100 01/26/23 01/26/23 12:10 15:41 Temperature 36.2 C L 36.9 C Heart Rate [ 53 L Brachial] Heart Rate [ 57 L Monitoring electrodes] Respiratory 16 16 Rate Blood Pressure 152/92 H 135/86 H [Left Brachial artery] Blood Pressure [Right Brachial artery] O2 Saturation 100 100 Oxygen O2 Source Room air I&O (Last 24 Hrs): Intake and Output Totals x24h 01/24/23 01/25/23 01/26/23 23:59 23:59 23:59 Intake Total 2151 4500 1951 Output Total 2600 2205 Balance 2151 1900 -254 General: Alert, Oriented x3 HEENT: Mucous membr. moist/pink Neck: Supple Neuro: Alert, Other (moving all extrem) Cardiovascular: Regular rate Respiratory: No respiratory distress Abdomen: Other (Not distended) Extremities: No clubbing, No edema - Results Results: Laboratory Results WBC 8.0 x10^3/uL (4.8-10.8) 01/25/23 04:20 RBC 4.53 10^6/uL (4.70-6.10) L 01/25/23 04:20 Hgb 12.4 g/dL (14.0-18.0) L 01/25/23 04:20 Hct 39.0 % (42.0-52.0) L 01/25/23 04:20 MCV 86.1 fL (80.0-94.0) 01/25/23 04:20 MCH 27.4 pg (27.0-31.0) 01/25/23 04:20 MCHC 31.8 g/dL (32.0-36.0) L 01/25/23 04:20 RDW 14.7 % (12.0-15.0) 01/25/23 04:20 Plt Count 460 10^3/uL (130-450) H 01/25/23 04:20 MPV 8.7 fL (7.4-11.4) 01/25/23 04:20 Neut # (Auto) 6.1 10^3/uL (1.5-6.6) 01/25/23 04:20 Lymph # (Auto) 1.4 10^3/uL (1.5-3.5) L 01/25/23 04:20 [place] # (Auto) 0.4 10^3/uL (0.0-1.0) 01/25/23 04:20 Eos # (Auto) 0.0 10^3/uL (0.0-0.7) 01/25/23 04:20 Baso # (Auto) 0.0 10^3/uL (0.0-0.1) 01/25/23 04:20 Absolute Nucleated RBC 0.00 x10^3/uL 01/25/23 04:20 Nucleated RBC % 0.0 /100WBC 01/25/23 04:20 Sodium 134 mmol/L (135-145) L 01/25/23 04:20 Potassium 4.1 mmol/L (3.5-4.5) 01/25/23 04:20 Chloride 102 mmol/L (101-111) 01/25/23 04:20 Carbon Dioxide 26 mmol/L (21-32) 01/25/23 04:20 Anion Gap 6.0 (6-13) 01/25/23 04:20 BUN 8 mg/dL (6-20) 01/25/23 04:20 Creatinine 0.7 mg/dL (0.6-1.3) 01/25/23 04:20 Estimated GFR (MDRD) 151 (>89) 01/25/23 04:20 Glucose 78 mg/dL (74-104) 01/25/23 04:20 Lactic Acid 1.7 mmol/L (0.5-2.2) 01/24/23 11:48 Calcium 9.3 mg/dL (8.5-10.3) 01/25/23 04:20 Magnesium 2.0 mg/dL (1.7-2.3) 01/24/23 11:48 Total Bilirubin 0.4 mg/dL (0.2-1.0) 01/24/23 11:48 AST 26 IU/L (10-42) 01/24/23 11:48 ALT 19 IU/L (10-60) 01/24/23 11:48 Alkaline Phosphatase 95 IU/L (42-121) 01/24/23 11:48 Total Protein 8.8 g/dL (6.4-8.9) 01/24/23 11:48 Albumin 3.8 g/dL (3.2-5.5) 01/24/23 11:48 Globulin 5.0 g/dL (2.1-4.2) H 01/24/23 11:48 Albumin/Globulin Ratio 0.8 (1.0-2.2) L 01/24/23 11:48 Lipase 20 U/L (11-82) 01/24/23 11:48 Urine Color YELLOW 01/24/23 11:24 Urine Clarity CLEAR (CLEAR) 01/24/23 11:24 Urine pH 7.0 PH (5.0-7.5) 01/24/23 11:24 Ur Specific [place] 1.020 (1.002-1.030) 01/24/23 11:24 Urine Protein NEGATIVE mg/dL (NEGATIVE) 01/24/23 11:24 Urine Glucose (UA) NEGATIVE mg/dL (NEGATIVE) 01/24/23 11:24 Urine Ketones NEGATIVE mg/dL (NEGATIVE) 01/24/23 11:24 Urine Occult Blood NEGATIVE (NEGATIVE) 01/24/23 11:24 Urine Nitrite NEGATIVE (NEGATIVE) 01/24/23 11:24 Urine Bilirubin NEGATIVE (NEGATIVE) 01/24/23 11:24 Urine Urobilinogen 0.2 (NORMAL) E.U./dL (NORMAL) 01/24/23 11:24 Ur Leukocyte Esterase NEGATIVE (NEGATIVE) 01/24/23 11:24 Ur Microscopic Review NOT INDICATED 01/24/23 11:24 Urine Culture Comments NOT INDICATED 01/24/23 11:24
--- NOTE | 2023-01-26 21:38 | XRAY Report ---
PROCEDURE: SBFT Challenge Panel INDICATIONS: Poss SBO COMPARISON: CT abdomen/pelvis 01/24/2023 CONTRAST: Oral Gastrografin contrast material FINDINGS: KUB: Preprocedural running instructor film demonstrates a dilated air-filled loops of small bowel in the central abdomen. No suspicious abdominal calcifications. Visualized solid organ contours appear normal. No suspicious bony abnormalities. Small bowel: There is normal transit time of barium through the small bowel. Small bowel loops are of normal caliber throughout. Mucosal folds are smooth and of normal thickness. No strictures, intr aluminal masses, or extrinsic mass effects are noted. The terminal ileum is identified, and is jamie l in morphology. IMPRESSION: Oral contrast material is seen in the colon on 4 hour postcontrast images. Previously seen dilated sm all bowel loops appear to have decreased. Reviewed by: Juan M Babcock MD on 01/26/2023 9:37 PM PDT Approved by: Juan M Babcock MD on 01/26/2023 9:37 PM PDT Station ID: [id number]
[2023-01-27] MEDS: VANCOMYCIN INJ 1 GM, VANCOMYCIN INJ 250 MG in SODIUM CHLORIDE 0.9% 250 ML IV SCH (00:50)
[2023-01-27] MEDS: metroNIDAZOLE 500 MG/100 ML 500 MG/100 ML BAG IV SCH (02:40)
[2023-01-27] MEDS: CEFEPIME 1 GM in SODIUM CHLORIDE 0.9% MINIBAG 100 ML IV SCH (05:42)
[2023-01-27 07:40] LABS: BASOPHILS # (AUTO) 0.1 10^3/uL (0.0-0.1); BASOPHILS % (AUTO) 1.1 %; EOSINOPHILS # (AUTO) 0.2 10^3/uL (0.0-0.7); EOSINOPHILS % (AUTO) 3.4 %; HCT - HEMATOCRIT 38.5 % (42.0-52.0); HGB - HEMOGLOBIN 12.3 g/dL (14.0-18.0); LYMPHOCYTES # (AUTO) 1.4 10^3/uL (1.5-3.5); LYMPHOCYTES % (AUTO) 20.9 %; MEAN CORPUSCULAR HEMOGLOBIN 27.5 pg (27.0-31.0); MEAN CORPUSCULAR HGB CONC 31.9 g/dL (32.0-36.0); MEAN CORPUSCULAR VOLUME 85.9 fL (80.0-94.0); MEAN PLATELET VOLUME 8.5 fL (7.4-11.4); MONOCYTES # (AUTO) 0.7 10^3/uL (0.0-1.0); MONOCYTES % (AUTO) 10.2 %; NEUTROPHILS # (AUTO) 4.2 10^3/uL (1.5-6.6); NEUTROPHILS % (AUTO) 64.1 %; PLT - PLATELET COUNT 351 10^3/uL (130-450); RED BLOOD COUNT 4.48 10^6/uL (4.70-6.10); WHITE BLOOD COUNT 6.5 x10^3/uL (4.8-10.8)
[2023-01-27 07:53] LABS: CALCIUM 9.2 mg/dL (8.5-10.3); CREATININE 2.2 mg/dL (0.6-1.3); CRP - C-REACTIVE PROTEIN 2.6 mg/dL (<0.5)
--- NOTE | 2023-01-27 07:54 | Discharge Plan ---
Discharge Plan Problem Reviewed?: Yes Disposition: Against Medical Advice Condition: Stable Prescriptions: Amox/Clav 875/125 [Augmentin 875/125 Tab] 1 tablet PO Q12H 10 Days #20 tablet Additional Instructions or Follow Up instructions: Small frequent fluids at home. Simple diet with starches/carbohydrates such as pastas rice cereals. Electrolyte fluids such as Gatorade. For now would make sense to continue the antibiotics you have been on until follow-up. I wrote a prescription for Augmentin. For symptoms, use the ondansetron for nausea as needed. Add Tylenol every 4-6 hours if needed for pain. Stay hydrated. Continue with your risperidone medication to help with your mood and anxiety. Follow-up this coming Thursday at [facility] as planned. Return to the ER sooner if needed. I sent prescriptions for your medicines to the [facility] pharmacy in [place]. No Smoking: If you smoke, Please STOP! Call for help.
--- NOTE | 2023-01-27 07:59 | DISCHARGE SUMMARY ---
"Discharge Summary Admit Date: 01/25/23 Discharge Date: 01/27/23 Discharging Provider: Freeman Rojas Primary Care Provider: Unknown PCP Code Status: Attempt Resuscitation Condition at Discharge: Stable Discharge Disposition: 07 Against Medical Advice - DIAGNOSES Admission Diagnoses: Abdominal abscess Ileus Discharge Diagnoses with Status of Each Condition: Abdominal abscess - ongoing. Ileus - improved. Acute kidney injury - ongoing. Schizophrenia - ongoing. - HPI History of Present Illness: HPI per Dr. Restrepo: 42 y old male with PMH schizophrenia presented with c/o abdominal pain and naus ea and vomiting. Pt is quite sleepy at this time and not able to provide any history so most of history is from ER physician and ER record. Apparently patient has history of multiple abdominal/ skin abscess for which he was admitted in hospitals in [place] and drain was put in December. Most recentl y he was admitted in [facility] last week and stayed there for 3 days but he left AMA. Apprently patient also pulled his drain 3 days ago. He has f/u appointment with GI on 01/28. Patient came in with abdominal pain and nausea and vomiting. On presentaion, afebrile Labs showed normal WBC CT abdomen/pelvis was done which showed small perisplenic subdiagphamatic abscess which has decreased in size As per ER physician (Dr Randolph), he discussed the case with environmental scientist surgeon, Dr Coronado who suggested IV abx and no surgical intervention at this time In ER, patient was given IV Abx Patient is admitted due to abdominal pain, nausea, vomiting, possible ileus, acute gastroenteritis, perisplenic abscess - CONSULTS | PROCEDURES Consultations: General Surgery - HOSPITAL COURSE Hospital Course: The patient was admitted due to ongoing nausea and vomiting as well as abdominal pain. This was felt to be secondary to the splenic abscess as well as potential ileus versus gastroenteritis. He was placed on empiric IV antibiotics with cefepime, Flagyl IV. General surgery was initially consulted in the emergency department and recommended IV antibiotics alone. Due to his ongoing nausea and vomiting they were reconsulted and there is concern for potential ileus versus early small bowel obstruction.You underwent a small bowel follow-through which did show contrast in the colon. The dilated loops of small bowel appeared improved. Patient has been afebrile with no leukocytosis. This morning patient insistent on leaving and keeps requesting antibiotics. Discussed with patient that he has evidence of acute kidney injury which is new as his creatinine is now 2.2. This was rechecked to ensure there is no lab error and it is elevated at 2.3.I asked the patient to remain hospitalized we can further work-up his acute kidney injury and at least need to transition to oral antibiotics and advance his diet. He was insistent on leaving as he has to go to work and states that he will come back if need be. I informed him that I can write him a work note if that was his concern but he stated he just wanted to leave. Patient was able to understand the severity of his condition. I have asked him to return to the emergency department if you develop worsening abdominal pain, fever, chills, nausea, vomiting or noticed decreased urine output. He understands that he still has an abscess in his abdomen and that he has evidence of kidney injury. I did prescribe Augmentin for 10 more days. He will need follow-up with GI as previously scheduled. - ALLERGIES Allergies/Adverse Reactions: Allergies Allergy/AdvReac Type Severity Reaction Status Date / Time No Known Drug Allergies Allergy Verified 12/14/22 18:37 - MEDICATIONS Home Medications: Ambulatory Orders Medication Instructions Recorded Confirmed Fluconazole [Diflucan] 200 mg PO DAILY #56 tablet 12/14/22 01/25/23 levoFLOXacin [Levofloxacin] 750 mg PO DAILY #28 tablet 12/14/22 01/25/23 metroNIDAZOLE [Flagyl] 500 mg PO TID 7 Days #84 tablet 12/14/22 01/25/23 Acetaminophen [Tylenol] 650 mg PO Q6H PRN 01/25/23 01/25/23 Folic Acid 1 mg PO DAILY 01/25/23 01/25/23 Gabapentin [Neurontin] 100 mg PO BID 01/25/23 01/25/23 Melatonin/Pyridoxine [Melatonin 5 5 mg PO QPM 01/25/23 01/25/23 mg Tablet] Multivitamin [Theragran] 1 each PO DAILY 01/25/23 01/25/23 Omeprazole Magnesium 20 mg PO DAILY 01/25/23 01/25/23 Thiamine [Vitamin B-1] 100 mg PO DAILY 01/25/23 01/25/23 risperiDONE [Risperdal] 2 mg PO BID 01/25/23 01/25/23 Amox/Clav 875/125 [Augmentin 1 tablet PO Q12H 10 Days #20 tablet 01/27/23 875/125 Tab] - PHYSICAL EXAM AT DISCHARGE General Appearance: positive: No acute distress, Alert Eyes Bilateral: positive: Normal inspection ENT: positive: ENT inspection nml Neck: positive: Nml inspection Respiratory: positive: No respiratory distress Abdomen: positive: Non-tender, No distention. negative: Guarding, Rebound Skin: positive: Warm, Dry Extremities: positive: No pedal edema Neurologic/Psychiatric: positive: Other (Pressure speech.). negative: Disoriented to person, Disoriented to place Physical Exam Other/Comments: Vital Signs - 24 hr 01/26/23 01/26/23 01/26/23 12:10 15:41 23:59 Temperature 36.2 C L 36.9 C 36.9 C Heart Rate [ 53 L 101 H Brachial] Heart Rate [ 57 L Monitoring electrodes] Respiratory 16 16 16 Rate Blood Pressure 152/92 H 135/86 H 143/71 H [Left Brachial artery] O2 Saturation 100 100 97 Oxygen O2 Source Room air - LABS Result Diagrams: 01/27/23 07:31 01/27/23 08:21 - DIAGNOSTIC IMAGING Diagnostic Imaging Results: Final report reviewed - SEPSIS Current Stage of Sepsis: Resolved Possible source of Sepsis: GI tract/intra-abdominal - FOLLOW UP Follow Up: He has scheduled follow-up with GI on 01/28 at the [facility]. - TIME SPENT Time Spent in Discharge (Minutes): 32"
[2023-01-27 08:11] VITALS: BP 131/83; O2SAT 99
[2023-01-27 08:39] LABS: CALCIUM 9.5 mg/dL (8.5-10.3); CREATININE 2.3 mg/dL (0.6-1.3)
== END 2023-01-27 08:40 | disposition left against medical advice (07) | DRG 815 ==
LOC: EDUNIT# → ED 09:51 → MS3 01-25 02:29 → MS2 01-25 16:03
PROVIDERS: ADMIT Internal Medicine; ATTEND Internal Medicine
PROC: 02HV33Z Insertion of Infusion Device into Superior Vena Cava, Percutaneous Approach (ICD-10-PCS; principal; 2023-01-25)
DX: D73.3 Abscess of spleen (principal); K56.7 Ileus, unspecified; N17.9 Acute kidney failure, unspecified; F20.9 Schizophrenia, unspecified; K52.9 Noninfective gastroenteritis and colitis, unspecified; M54.9 Dorsalgia, unspecified; F41.9 Anxiety disorder, unspecified; R00.1 Bradycardia, unspecified; R11.2 Nausea with vomiting, unspecified; Z79.899 Other long term (current) drug therapy; Z98.890 Other specified postprocedural states
CPT/HCPCS: 36415; 74177; 74250; 80048; 80053; 81003; 83605; 83690; 83735; 85025; 86140; 93005; 96361; 96365; 96367; 96375; 96376; 99285; A9270; C1751; J1170; J3370; J3411; J7040; Q9963; Q9967; 81001; 87086